=== PATIENT | female | born 1960 | race Caucasian/White ===

== ENCOUNTER 2017-02-25 12:52 | Emergency (ER) | payer BC ==
[~2017-02-25] VITALS: Ht 170.2 cm; Wt 101.6 kg
[2017-02-25 13:37] LABS: POINT-OF-CARE METER ID UU13113747
[2017-02-25 14:21] LABS: HEMATOCRIT 38.2 % (36.0-46.0); MCH 31.1 PG (29.0-34.0); MCV 94.3 FL (83-99); PLATELET COUNT 202 K/uL (156-360); RBC DIS.WIDTH-CV 12.8 % (11.8-14.6); RBC DIS.WIDTH-SD 44.4 % (39-53); RED BLOOD COUNT 4.05 M/uL (3.80-5.20); WHITE BLOOD COUNT 13.9 K/uL (4.1-10.2)
[2017-02-25 14:31] LABS: CHLORIDE 100 mEq/L (99-109); POTASSIUM 3.6 mEq/L (3.7-5.4); SODIUM 136 mEq/L (136-147)
[2017-02-25 14:33] LABS: GLUCOSE 120 mg/dL (70-99)
[2017-02-25 14:35] LABS: ANION GAP 12 MEQ/L (2-14)
[2017-02-25 14:37] LABS: GFR ESTIMATE (CALCULATED) 41 mL/min/
[2017-02-25 14:38] LABS: UREA NITROGEN (BUN) 13 mg/dL (9-23)
[2017-02-25 14:40] LABS: TROP-I INTERPRETATION NEGATIVE; TROPONIN-I < 0.01 ng/mL (0.0-0.30)
[2017-02-25 16:30] VITALS: BP 117/58
== END 2017-02-25 16:40 | disposition home or self-care (01) ==
LOC: EME 12:52
PROVIDERS: Emergency Medicine
DX: R55 Syncope and collapse (principal); I10 Essential (primary) hypertension; E11.9 Type 2 diabetes mellitus without complications
CPT/HCPCS: 71010; 80048; 82948; 84484; 85027; 93005; 99281; 99284